=== PATIENT | female | born 1960 | race Caucasian/White ===

== ENCOUNTER 2023-01-23 16:35 | Emergency (ER) | payer OTHER, MEDICAID ==
[~2023-01-23] VITALS: Ht 149.9 cm; Wt 68.0 kg
[2023-01-23 17:48] LABS: BASOPHILS # (AUTO) 0.1 K/uL (0.0-0.2); BASOPHILS % (AUTO) 0.7 % (0.0-2.0); EOSINOPHILS % (AUTO) 0.7 % (0.0-4.0); HEMATOCRIT 45.6 % (36-48); HEMOGLOBIN 15.5 g/dL (12.0-16.0); LYMPHOCYTES # (AUTO) 0.7 K/uL (1.0-5.5); LYMPHOCYTES % (AUTO) 9.5 % (20.5-51.5); MEAN CORPUSCULAR HEMOGLOBIN 35 pg (27-31); MEAN CORPUSCULAR HGB CONC 34 % (32-36); MEAN CORPUSCULAR VOLUME 104 fL (79.0-98.0); MONOCYTES # (AUTO) 0.5 K/uL (0.0-1.0); MONOCYTES % (AUTO) 7.3 % (1.7-9.3); NEUTROPHILS # (AUTO) 6.1 K/uL (1.8-7.7); NEUTROPHILS % (AUTO) 81.8 % (40.0-70.0); PLATELET COUNT (AUTO) 162 K/uL (130-430); RED BLOOD CELL COUNT(AUTO) 4.41 MIL/uL (4.2-6.2); RED CELL DISTRIBUTION WIDTH 13.1 % (9.0-15.0); WHITE BLOOD COUNT (AUTO) 7.5 K/uL (4.8-10.8)
[2023-01-23 18:06] LABS: ALBUMIN 2.4 g/dL (3.4-4.8); CALCIUM 8.5 mg/dL (8.4-11.0); CREATININE 1.32 mg/dL (0.55-1.30); TOTAL BILIRUBIN 0.6 mg/dL (0.0-1.0)
--- NOTE | 2023-01-23 19:23 | NUR ---
Receied report from Mann RN Pt resting resting comfortably in bed Pt confused VSS Family at bedside Will continue to monitor
--- NOTE | 2023-01-23 19:30 | NUR ---
ER at bedside examining patient.
--- NOTE | 2023-01-23 20:00 | NUR ---
Placed in room 6 . Placed on aircraft design engineer, blood pressure machine and pulse oximeter. To gown for exam. Side rails up.
[2023-01-23] MEDS ORDERED: iohexoL 350 mgI/mL, 100 ML INFUS..BTL IV ONE (21:50)
--- NOTE | 2023-01-23 23:50 | NUR ---
Pt resting comfortably in bed Pt confused VSS Family at bedside Will continue to monitor
[2023-01-24] MEDS ORDERED: ASPI-1155 PO (01:41)
--- NOTE | 2023-01-24 01:58 | NUR ---
Patient given written and verbal discharge instructions and verbalizes understanding. ER MD discussed with patient the results and treatment provided. Patient in stable condition. ID arm band removed. Patient educated on pain management and to follow up with PMD. Opportunity for questions provided and answered. Medication side effect fact sheet provided.
[2023-01-24 01:59] VITALS: BP_SYST 127
--- NOTE | 2023-01-27 16:53 | NUR ---
RECEIVED LAB REPORT REGARDING POSITIVE BLOOD CULTURES, PT CALLED AND VM LEFT FOR CALL BACK @ . WILL ENCOURAGE PT TO RETURN TO NEAREST ER PER MD RECOMENDATION.
== END 2023-01-24 01:30 | disposition home or self-care (01) ==
LOC: SED 16:35
DX: I73.9 Peripheral vascular disease, unspecified (principal); L60.8 Other nail disorders; Z79.82 Long term (current) use of aspirin; E78.5 Hyperlipidemia, unspecified; I25.10 Atherosclerotic heart disease of native coronary artery without angina pectoris
CPT/HCPCS: 99291; 75635; 80061; 80053; 85025; 87040; 36415; 71045; 83605; 76376; Q9967